=== PATIENT | male | born 1990 | race African-American/Black ===

== ENCOUNTER 2022-10-19 06:06 | Emergency (ER) | payer OTHER ==
[~2022-10-19] VITALS: Ht 177.8 cm; Wt 108.9 kg
--- NOTE | 2022-10-19 06:34 | NUR ---
BIBSELF C/O SWOLLEN LYMPH NODES S/P SMOKING X3 DAYS AGO
--- NOTE | 2022-10-19 06:42 | NUR ---
Deanna pathak in [facility] - 10/19/[address] at [address] KELLY AT BEDSIDE
--- NOTE | 2022-10-19 07:02 | NUR ---
STEP SWAB COLLECTED BY DR AMY GONZÁLES AND SENT TO LAB
--- NOTE | 2022-10-19 07:10 | NUR ---
RECEIVED PT FROM [facility] DUDLEY PT STABLE NO SOB
[2022-10-19] MEDS ORDERED: DEXAMETHASONE 1 MG TABLET ONE (08:00)
[2022-10-19] MEDS ORDERED: DEXAMETHASONE SOLN 5 MG/5 ML UDC PO ONE (08:00)
[2022-10-19] MEDS ORDERED: DEXAMETHASONE 4 MG TABLET ONE (08:01)
--- NOTE | 2022-10-19 08:09 | NUR ---
LUCIO AND COMFORABLE WATING FOR DISPO
--- NOTE | 2022-10-19 09:06 | NUR ---
Patient discharged to home in stable condition. Written and verbal after care instructions given. Patient verbalizes understanding of instruction.
[2022-10-19 09:10] VITALS: BP 135/87
== END 2022-10-19 09:15 | disposition home or self-care (01) ==
LOC: ER 06:11
DX: J02.9 Acute pharyngitis, unspecified (principal)
CPT/HCPCS: 99283; 87880; J8540 ×2; 86403-TC